=== PATIENT | male | born 1945 | race Two or more races ===

== ENCOUNTER 2017-01-19 10:42 | Outpatient (CLI) | payer MEDICARE ==
[~2017-01-19] VITALS: Ht 172.7 cm; Wt 70.9 kg
--- NOTE | ~2017-01-19 | HEMODYNAMI ---
PATIENT:ALICE DAMON MEDICAL RECORD: [id number] : 41 LOCATION:[facility] ADMISSION DATE: 01/19/17 Generatedon:01/19/201715:21 Patient name: ALICE FOOTE Patient #: [id number] SN: : 1945 Date of study: 01/19/2017 Page: Of Hemodynamic Procedure Report Patient Data Patient Demographics Procedure consent was obtained First Name: ALICE Gender: Male Last Name: YANCY FOOTE : 1945 Middle Initial: A Age: 71 year(s) Patient #: [id number] Race: Other Additional ID: [id number] Contact details Address: [place] [address] State: [place] City: [place] Zip code: [address] Past Medical History Performed procedures and imaging results Date Procedure Procedure Results Comments 12/30/2016 Stress testing Positive->Intermediate Inferior with SPECT MPI risk Allergies: No known allergies Admission Admission Data Admission Date: 01/19/2017 Admission Time: 10:42 Height (in.): 61 BSA: 1.7 (m2) Height (cm.): 154.94 BMI: 29.48 (kg/m2) Weight (lbs.): 156 Weight (kg.): 70.76 Lab Results Lab Result Date: 01/19/2017 Lab Result Time: 12:00 Biochemistry Name Units Result Min Max BUN mg/dl 15 --(--*-)-- 7 18 Creatinine mg/dl 1.1 --(--*-)-- 0.6 1.3 CBC Name Units Result Min Max Hematocrit % 43.2 --(*---)-- 42 54 Hemoglobin g/dl 14.5 --(*---)-- 13.5 17.5 Procedure Procedure Types Cath Procedure Diagnostic Procedure LHC LHC w/Coronaries Miscellaneous Procedures Moderate Sedation up to 15 minutes Procedure Description Procedure Date Procedure Date: 01/19/2017 Procedure Start Time: 15:00 Procedure End Time: 15:20 Procedure Staff Name Function Lang Vega MD Performing Physician Xiomara Leslie RN Nurse Silvestre Colvin RT Monitor Lima Mott RT Scrub Meaghan Stafford RT Monitor Procedure Data Cath Procedure Fluoroscopy Diagnostic fluoroscopy Total fluoroscopy Time: 4.9 time: 4.9 min min Diagnostic fluoroscopy Total fluoroscopy dose: 661 dose: 661 mGy mGy Contrast Material Contrast Material Type Amount (ml) Isovue 300 90 Entry Location Entry Primary Successful Side Size Upsize Upsize Entry Closure Menendez ccessful Closure Location (Fr) 1 (Fr) 2 (Fr) Remarks Device Remarks Radial Right 6 Fr Mechanical Traclet artery Short Compression Estimated blood loss: 10 ml Diagnostic catheters Device Type Used For End Catheter Placement Terumo 5Fr Jordan 110cm Procedure catheter Terumo 5Fr [place] 110cm Procedure catheter Procedure Complications No complications Procedure Medications Medication Administration Route Dosage Oxygen NC 2 l/min Heparin Flush Bag added to field 2 bags (1000units/500ml NS) Lidocaine 2% added to field 20 Radial Cocktail added to field 1 syringe (Verapomil 2mg/Nitro 400mcg/Heparin 1500units) Versed I.V. 1 mg Fentanyl I.V. 50 mcg Radial Cocktail I.A. 1 syringe (Verapomil 2mg/Nitro 400mcg/Heparin 1500units) Versed I.V. 1 mg Fentanyl I.V. 50 mcg Fentanyl I.V. 50 mcg Fentanyl I.V. 50 mcg Hemodynamics Rest BSA: 1.7 (m2) HGB: 14.5 (g/dl) O2 Consumption: Estimated: 185.53 (ml/min) O2 Con sumption indexed: Estimated:109.14 (ml/min/m) Heart Rate: 54 (bpm) Pressure Samples Time Site Value (mmHg) Purpose Heart Use Rate(bpm) 15:04 LV 168/4,22 Snapshot 84 15:04 AO 130/81(97) Pullback 85 15:04 LV 172/4,25 Pullback 85 Gradients Valve Time Site 1 Site 2 Mean SEP/DFP Peak To Heart Use (mmHg) (sec/min) Peak Rate (mmHg) (bpm) Aortic 15:04 LV AO 18 21 42 85 172/4,25 130/81(97) Calculations Valve P-P Mean Valve Index Valve Source Name Gradient Area Flow (cm2) Aortic 42 18 42 18 Snapshots Pre Cath Intra NCS Post Cath Vital Signs Time Heart Resp SPO2 NIBP (mmHg) Rhythm Pain Sedation Rate (ipm) (%) Status Level (bpm) 14:49:26 59 18 98 155/81(113) NSR 0 (11) 10(A) , No pain 14:53:44 61 15 98 133/83(100) NSR 0 (11) 10(A) , No pain 14:57:56 67 16 98 140/76(118) NSR 0 (11) 10(A) , No pain 15:02:10 71 16 98 132/74(127) NSR 0 (11) 9(A) , No pain 15:06:20 86 16 99 116/80(101) NSR 0 (11) 9(A) , No pain 15:11:11 83 16 99 132/86(110) NSR 0 (11) 9(A) , No pain 15:15:21 76 16 98 136/76(118) NSR 0 (11) 9(A) , No pain 15:18:52 71 16 100 139/76(110) NSR 0 (11) 10(A) , No pain Medications Time Medication Route Dose Verified Delivered Reason Notes Effectiveness by by 14:48:23 Oxygen NC 2 l/min Lang Xiomara Per Gary Leslie RN physician 14:48:33 Heparin Flush added 2 bags Lang Lang used for Bag to Gary Vega MD procedure (1000units/500ml field NS) 14:48:40 Lidocaine 2% added 20ml Lang Lang used for to vial Gary Vega MD procedure field 14:48:48 Radial Cocktail added 1 Lang Lang used for (Verapomil to syringe Gary Vega MD procedure 2mg/Nitro field 400mcg/Heparin 1500units) 14:54:39 Versed I.V. 1 mg Lang Xiomara for sedation Gary Leslie RN 14:54:44 Fentanyl I.V. 50 mcg Lang Xiomara for sedation Gary Leslie RN 14:56:45 Fentanyl I.V. 50 mcg Lang Xiomara for sedation Gary Leslie RN 14:56:56 Versed I.V. 1 mg Lang Xiomara for sedation Gary Leslie RN 14:59:02 Fentanyl I.V. 50 mcg Lang Xiomara for sedation Gary Leslie RN 15:02:48 Radial Cocktail I.A. 1 Lang Lang for (Verapomil syringe Gary Vega MD vasodilation 2mg/Nitro 400mcg/Heparin 1500units) 15:10:57 Fentanyl I.V. 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 Start room use. 14:28:49 Time tracking: Regular hours 14:28:53 Plan of Care:Hemodynamics will remain stable., Cardiac rhythm will remain stable., Comfort level will be maintained., Respiratory function will remain adequate., Patient/ family verbilizes understanding of procedure., Procedure tolerated without complication., Recovers from procedure without complications.. 14:40:05 Patient received from Pre/Post Procedure Room to CCL 2 Alert and oriented. Tansferred to table in Supine position. 14:40:06 Warm blankets applied, and bill hugger turned on for patient comfort. 14:40:06 Correct patient and procedure confirmed by team. 14:40:07 Signed procedure consent form obtained from patient. 14:40:08 ECG and BP/O2 sat monitors applied to patient. 14:40:09 Full Disclosure recording started 14:47:18 Vital chart was started 14:47:20 Baseline sample Acquired. 14:47:23 Rhythm: sinus rhythm 14:47:49 H&P Date Dictated: 01/06/2017 Within 30 days and on chart., H&P Addendum completed by physician on day of procedure. (MUST COMPLETE FOR ALL OUTPATIENTS). 14:47:50 Pre-procedure instructions explained to patient. 14:47:50 Pre-op teaching completed and patient verbalized understanding. 14:47:58 Family in waiting room. 14:48:00 Patient NPO since Midnight. 14:48:05 Patient allergic to No known allergies 14:48:11 Is patient on blood thinner?No 14:48:13 Patient diabetic? No. 14:48:15 Previous problem with sedation/anesthesia? No ? 14:48:17 Snore? Yes 14:48:17 Sleep apnea? No 14:48:18 Deviated septum? No 14:48:19 Opens mouth fully? Yes 14:48:20 Sticks out tongue? Yes 14:48:22 Airway obstruction? No ? 14:48:23 Oxygen 2 l/min NC was administered by Xiomara Leslie RN; Per physician; 14:48:23 Dentures? No ? 14:48:26 Patient pain scale 0/10 ?. 14:48:33 Heparin Flush Bag (1000units/500ml NS) 2 bags added to field was administered by Lang Vega MD; used for procedure; 14:48:33 IV patent on arrival in left forearm with 0.9% NaCl at [facility]. 14:48:40 Lidocaine 2% 20ml vial added to field was administered by Lang Vega MD; used for procedure; 14:48:48 Radial Cocktail (Verapomil 2mg/Nitro 400mcg/Heparin 1500units) 1 syringe added to field was administered by Lang Vega MD; used for procedure; 14:49:42 Lab Result : BUN 15 mg/dl 14:49:42 Lab Result : Creatinine 1.1 mg/dl 14:49:42 Lab Result : Hemoglobin 14.5 g/dl 14:49:42 Lab Result : Hematocrit 43.2 % 14:49:46 Lab results completed and on chart. 14:49:49 Right Radial & Right Groin area was prepped with chlora-prep and draped in sterile fashion 14:49:49 Alarms reviewed by R. N. 14:49:50 Sharps counted by scrub and verified by R.N. 14:49:52 Use device set Radial Dx 14:49:53 MBrace Wrist Support opened to sterile field. 14:49:54 Tegaderm 4 x 4 opened to sterile field. 14:49:54 Acist Manifold opened to sterile field. 14:49:55 Acist Hand Control opened to sterile field. 14:49:56 Acist Syringe opened to sterile field. 14:49:56 Medline Cath Pack opened to sterile field. 14:49:57 Bag Decanter opened to sterile field. 14:49:57 Terumo 6Fr Slender Glidesheath opened to sterile field. 14:49:58 St Mukund 260cm J .035 wire opened to sterile field. 14:50:13 Patient Height : 154.94 cm 14:50:15 Patient Weight : 70.76 kg 14:53:35 Physician arrived 14:53:36 --------ALL STOP TIME OUT------ 14:53:36 Final Timeout: patient, procedure, and site verified with staff and physician. All members of the team are in agreement. 14:53:38 Right Radial & Right Groin site verified by team. 14:53:41 Physical assessment completed. ASA score P 2 - A patient with mild systemic disease as per Lang Vega MD. 14:53:44 Sedation plan: IV Moderate Sedation Versed, Fentanyl 14:54:39 Versed 1 mg I.V. was administered by Xiomara Leslie RN; for sedation; 14:54:44 Fentanyl 50 mcg I.V. was administered by Xiomara Leslie RN; for sedation; 14:56:23 Zero performed for pressure channel P1 14:56:45 Fentanyl 50 mcg I.V. was administered by Xiomara Leslie RN; for sedation; 14:56:56 Versed 1 mg I.V. was administered by Xiomara Leslie RN; for sedation; 14:59:02 Fentanyl 50 mcg I.V. was administered by Xiomara Leslie RN; for sedation; 15:00:45 Procedure started. 15:00:57 Local anesthetic to right radial artery with Lidocaine 2% by Lang Vega MD.INITIAL ACCESS ONLY 15:02:48 Radial Cocktail (Verapomil 2mg/Nitro 400mcg/Heparin 1500units) 1 syringe I.A. was administered by Lang Vega MD; for vasodilation; 15:02:50 A 6 Fr Short sheath was inserted into the Right Radial artery 15:03:10 A Terumo 5Fr Jordan 110cm catheter was advanced over the wire and used for Procedure. 15:04:17 LV gram done using THOMAS 15:04:20 Injector settings: Ml/sec: 5, Volume: 15, 15:04:31 EF : 60 % 15:05:41 RCA angiography performed. 15:06:34 Catheter removed. 15:09:07 Medtronic Launcher 5Fr AR 1.0 guide catheter opened to sterile field. 15:09:15 RCA angiography performed. 15:10:19 Catheter removed. 15:10:57 Fentanyl 50 mcg I.V. was administered by Xiomara Leslie RN; for sedation; 15:12:14 A Terumo 5Fr [place] 110cm catheter was advanced over the wire and used for Procedure. 15:12:21 LCA angiography performed. 15:16:02 Catheter removed. 15:17:41 Sheath removed intact; hemostasis achieved with Mechanical Compression to the Right Radial artery. 15:17:44 Procedure ended.(Physican Out) 15:18:19 Fluoroscopy time 04.90 minutes. 15:18:25 Fluoroscopy dose: 661 mGy 15:18:25 Flurop Dose total: 661 15:18:30 Contrast amount:Isovue 300 90ml. 15:18:32 Sharps counted by scrub and verified by R.N. 15:18:46 Post Procedure Pulses reassessed and unchanged 15:18:49 Post-procedure physical assessment completed. ASA score P 2 - A patient with mild systemic disease as per Lang Vega MD. 15:18:54 Post procedure rhythm: unchanged. 15:18:58 Estimated blood loss: 10 ml 15:19:00 Post procedure instruction explained to patient.Patient verbalizes understanding. 15:19:12 Procedure and supply charges have been captured, reviewed, submitted and are correct. 15:19:54 Procedure Complication : No complications 15:19:57 Vital chart was stopped 15:20:00 Report given to Pre/Post Procedure Room. 15:20:04 Patient transfered to Pre/Post Procedure Room with Stretcher. 15:20:07 Procedure ended. 15:20:07 Full Disclosure recording stopped 15:20:12 End room use (Document Last) 15:21:10 TR band inflated with 13cc of air. Device Usage Item Name Manufacture Quantity Catalog Hospital Part Current Minimal Lot# / Number Charge Number Stock Stock Serial# Code [facility] Advanced 1 140-0250-00 092752 16621 [id number] 5 Wrist Vascular Support Dynamics Tegaderm 4 3M 1 [id number] [id number] 326980 510627 5 x 4 Acist Acist 1 07184 440150 482486 204076 5 Manifold Medical Systems Inc Acist Hand Acist 1 88129 557533 178977 282472 5 Control Medical Systems Inc Acist Acist 1 78822 533117 245589 263182 20 Syringe Medical Systems Inc Medline Cardinal 1 [id number] 119744 38214 049893 5 Cath Pack Health Bag Microtek 1 2001S 2971740 51949 182610 5 Decanter Medical Inc. Terumo 6Fr Terumo 1 [id number] 697723 313857 640115 [address] Mukund 1 745544 306679 935407 650962 30 260cm J .035 wire Terumo 5Fr Terumo 1 98-9277 305275 167655 555035 5 Jordan 110cm catheter Medtronic Medtronic 1 [id number] 133589 875930 602472 1 Launcher 5Fr AR 1.0 guide catheter Terumo 5Fr Terumo 1 62-0987 635705 988008 070374 5 [place] 110cm catheter Signature Audit [place] Stage Time Signature Unsigned Intra-Procedure 01/19/2017 Meaghan Stafford 3:21:31 PM RT(R) Signatures Monitor : Silvestre Colvin RT Signature : Date : Time : Monitor : Meaghan Stafford Signature : RT Date : Time : [address] [place] [address]
[~2017-01-19 10:42] MED LIST: BAYER CHEWABLE81 MG PO; BRILINTA90 MG PO; SYNTHROID88 MCG PO
[2017-01-19 12:03] VITALS: BP 131/65; Ht 172.7 cm; Wt 70.9 kg
[2017-01-19] MEDS ORDERED: ZOCOR40 MG PO (12:19)
[2017-01-19] MEDS ORDERED: LIBRAX CAPSULE1 CAP PO (12:19)
[2017-01-19] MEDS ORDERED: SINGULAIR10 MG PO (12:19)
[2017-01-19] MEDS ORDERED: SYNTHROID50 MCG PO (12:20)
[2017-01-19] MEDS ORDERED: XANAX0.25 MG PO (12:21)
[2017-01-19] MEDS ORDERED: HALCION0.25 MG PO (12:21)
[2017-01-19 12:22] LABS: HEMATOCRIT 43.2 % (42.0-54.0); HEMOGLOBIN 14.5 g/dL (13.5-17.5); IMMATURE GRANULOCYTES 0.2 % (0-5); LYMPHOCYTES 27.4 % (15-50); MCHC 33.6 g/dL (31.0-37.0); MCV 92.5 fL (80.0-100.0); MEAN PLATELET VOLUME 8.9 fL (7.4-10.4); MONOCYTES 11.7 % (2-11); NEUTROPHILS 53.7 % (40-80); PLATELET COUNT 216 10x3/uL (130-400); RBC 4.67 10x6/uL (4.20-6.10); RDW 13.3 % (11.5-14.5); WBC 5.2 10x3/uL (4.8-10.8)
[2017-01-19] MEDS ORDERED: PRINIVIL20 MG PO (12:22)
[2017-01-19] MEDS ORDERED: LEXAPRO10 MG PO (12:22)
[2017-01-19 12:46] LABS: ANION GAP 11.7 mmol/L (8-16); CALCIUM 9.4 mg/dL (8.5-10.1); CARBON DIOXIDE 26.5 mmol/L (21.0-32.0); CREATININE - SERUM 1.1 mg/dL (0.6-1.3); POTASSIUM - SERUM 4.2 mmol/L (3.5-5.1)
[2017-01-19] MEDS ORDERED: ISOSORBIDE MONO30 M1 PO (15:39)
--- NOTE | 2017-01-19 15:45 | NUR ---
RESTING IN BED WITH EYES CLOSED. 2L NC, NO RESP DISTRESS NOTED. VSS. RIGHT WRIST TRACELET IN PLACE, NO BLEEDING NOTED. NO C/O CHEST PAIN OR NAUSEA. INSTRUCTED PT NOT TO BEND OR FLEX WRIST.
--- NOTE | 2017-01-19 16:15 | NUR ---
WATER AND SANDWICH GIVEN. NO C/O NAUSEA OR CHEST PAIN. RIGHT WRIST TRACELET IN PLACE, NO BLEEDING NOTED. VSS. WILL CONTINUE TO MONITOR.
--- NOTE | 2017-01-19 16:30 | NUR ---
IN BED WITH EYES CLOSED. 2L NC, NO RESP DISTRESS NOTED. RIGHT WRIST TRACELET IN PLACE, NO BLEEDING NOTED. VSS.
--- NOTE | 2017-01-19 17:15 | NUR ---
2CC OF AIR REMOVED FROM TRACELET. NO BLEEDING NOTED.
--- NOTE | 2017-01-19 17:30 | NUR ---
3CC OF AIR REMOVED FROM TRACELET. NO BLEEDING NOTED.
--- NOTE | 2017-01-19 17:55 | NUR ---
2CC OR AIR REMOVED FROM TRACELET. NO BLEEDING NOTED. LEFT WRIST PIV D/C'D WITH CATHTETER INTACT, BAND AID TO SITE. UP TO BEDSIDE TO GET DRESSED.
--- NOTE | 2017-01-19 18:02 | NUR ---
UP TO RESTROOM TO VOID.
--- NOTE | 2017-01-19 18:05 | NUR ---
REMAINING AIR REMOVED FROM TR BAND, DRESSING TO SITE. DISCHARGE INSTRUCTIONS GIVEN, VERBALIZED UNDERSTANDING.
--- NOTE | 2017-01-19 18:12 | NUR ---
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 LEFT FACILITY WITH FAMILY MEMBER AND ALL PERSONAL BELONGINGS.
--- NOTE | 2017-01-21 12:49 | OP ---
PATIENT NAME: ALICE DAMON MEDICAL RECORD: [id number] :41 LOCATION:D.CAT ADMISSION DATE: SURGEON: GALINA XAVIER M.D. DATE OF OPERATION: 01/19/2017 PROCEDURES PERFORMED: 1. Selective coronary angiography. 2. Left heart catheterization with ventriculogram. INDICATION: A 71-year-old gentleman who presents with recurrent angina. Recent stress testing revealed inferior wall ischemia. EQUIPMENT USED: A 5-Salvadorean Jordan catheter, AR modified catheter. TECHNIQUE: A 6-Salvadorean sheath was inserted in retrograde fashion in the right radial artery. Next, selective coronary angiography was performed in standard views using 5-Salvadorean Jordan catheter. The right coronary artery was cannulated with an AR modified catheter. Left heart catheterization was performed using the Jordan catheter as well. CORONARY ANATOMY: 1. Left main: Left main trunk is moderate in caliber. It gives rise to the LAD and circumflex. There is no obstruction. 2. LAD: This is a moderate-caliber vessel extending to the apex. The proximal and mid vessel has been stented. There is mild restenosis seen, but nothing worse than 30%. 3. Circumflex: This vessel is large in caliber. At the bifurcation point, there appears to be a smooth 40% stenosis. 4. Right coronary: This vessel is quite large and dominant. It appears to be smooth-walled and angiographically normal. 5. Left ventricle: Left ventricle is normal in size and function. No wall motion abnormalities are noted. Estimated ejection is 60%. IMPRESSION: 1. Mild coronary artery disease by today's angiogram. 2. Normal left ventricular function. RECOMMENDATIONS: I will place him on nitrates. If his pain is not improved, I will consider intravascular ultrasound of the circumflex and LAD. TRANSINT:[id number] Voice Confirmation ID: [id number] DOCUMENT ID: [id number] GALINA XAVIER M.D. at 1249 CC: [id number] DICTATION DATE: 01/19/17 1524 INTERNET ARCHITECT: 01/20/17 0041 DEP CLI 01/19/17 [address] [facility] [place] [address]
== END 2017-01-19 18:12 | disposition home or self-care (01) ==
LOC: D.CATH 10:42
PROVIDERS: Internal Medicine Cardiovascular Disease
DX: I25.119 Atherosclerotic heart disease of native coronary artery with unspecified angina pectoris (principal)

== ENCOUNTER 2017-01-27 10:39 | Outpatient (CLI) | payer MEDICARE ==
[~2017-01-27] VITALS: Ht 172.7 cm; Wt 75.5 kg
--- NOTE | ~2017-01-27 | HEMODYNAMI ---
PATIENT:ALICE DAMON MEDICAL RECORD: [id number] : 41 LOCATION:[facility] ADMISSION DATE: 01/27/17 Generatedon:01/27/201715:54 Patient name: ALICE FOOTE Patient #: [id number] S SN: [id number] : 1945 Date of study: 01/27/2017 Page: Of Hemodynamic Procedure Report Patient Data Patient Demographics Procedure consent was obtained First Name: ALICE Gender: Male Last Name: YANCY FOOTE : 1945 Middle Initial: A Age: 71 year(s) Patient #: [id number] Race: Other SSN: [id number] Additional ID: [id number] Contact details Address: [address] [address] State: [place] City: [place] Zip code: [address] Past Medical History Allergies: No known allergies Admission Admission Data Admission Date: 01/27/2017 Admission Time: 10:39 Procedure Procedure Types Cath Procedure PCI Procedure Coronary Stent Initial Miscellaneous Procedures Moderate Sedation up to 30 minutes Procedure Description Procedure Date Procedure Date: 01/27/2017 Procedure Start Time: 15:22 Procedure End Time: 15:54 Procedure Staff Name Function Lang Bautista MD Performing Physician Luisito Valerio RT Scrub Otis Hollis RT Monitor Xiomara Leslie RN Nurse Procedure Data Cath Procedure Fluoroscopy Diagnostic fluoroscopy Total fluoroscopy Time: 9.2 time: 9.2 min min Diagnostic fluoroscopy Total fluoroscopy dose: dose: 1047 mGy 1047 mGy Contrast Material Contrast Material Type Amount (ml) Isovue 300 105 Entry Location Entry Primary Successful Side Size Upsize Upsize Entry Closure Succes sful Closure Location (Fr) 1 (Fr) 2 (Fr) Remarks Device Remarks Femoral Right 6 Fr Exoseal artery Short Estimated blood loss: 10 ml Procedure Complications No complications Procedure Medications Medication Administration Route Dosage Oxygen NC 2 l/min Heparin Flush Bag added to field 2 bags (1000units/500ml NS) Lidocaine 2% added to field 20 Versed I.V. 1 mg Fentanyl I.V. 50 mcg Versed I.V. 1 mg Fentanyl I.V. 50 mcg Fentanyl I.V. 50 mcg Versed I.V. 1 mg Heparin Bolus I.V. 7500 units Nitroglycerin IC/IA I.C. 100 mcg Versed I.V. 1 mg Fentanyl I.V. 50 mcg Plavix P.O. 75 mg Hemodynamics Rest Heart Rate: 54 (bpm) Pressure Samples Time Site Value (mmHg) Purpose Heart Use Rate(bpm) 15:29 AO 126/65(88) Snapshot 63 Snapshots Pre Cath Intra NCS Post Cath Vital Signs Time Heart Resp SPO2 NIBP (mmHg) Rhythm Pain Sedation Rate (ipm) (%) Status Level (bpm) 15:09:39 55 16 100 151/76(93) NSR 0 (11) 10(A) , No pain 15:13:57 57 13 100 136/74(113) NSR 0 (11) 10(A) , No pain 15:18:08 57 16 99 135/74(105) NSR 0 (11) 10(A) , No pain 15:22:18 59 15 98 129/79(97) NSR 0 (11) 9(A) , No pain 15:26:26 74 16 98 107/75(88) NSR 0 (11) 9(A) , No pain 15:30:28 69 18 98 109/69(90) NSR 0 (11) 9(A) , No pain 15:34:32 80 17 96 122/67(79) NSR 0 (11) 9(A) , No pain 15:39:20 71 16 96 131/82(91) NSR 0 (11) 9(A) , No pain 15:43:28 73 15 97 112/77(100) NSR 0 (11) 9(A) , No pain 15:47:30 76 15 97 132/79(110) NSR 0 (11) 10(A) , No pain 15:51:03 72 19 98 140/84(104) NSR 0 (11) 10(A) , No pain Medications Time Medication Route Dose Verified Delivered Reason Notes Effectiveness by by 15:12:07 Oxygen NC 2 Lang Ortega Per physician l/min Gary Hannah RN 15:12:14 Heparin Flush added 2 Lang Lang used for Bag to bags Gary Bautista MD procedure (1000units/500ml field NS) 15:12:21 Lidocaine 2% added 20ml Lang Lang used for to vial Gary Bautista MD procedure field 15:12:29 Versed I.V. 1 mg Lang Buffie for sedation aGry Hannah RN 15:12:36 Fentanyl I.V. 50 Lang Buffie for sedation mcg Gary Hannah RN 15:14:43 Versed I.V. 1 mg Lang Xiomara for sedation Gary Leslie RN 15:14:55 Fentanyl I.V. 50 Lang Xiomara for sedation mcg Gary Leslie RN 15:17:00 Fentanyl I.V. 50 Lang Xiomara for sedation mcg Gary Leslie RN 15:19:03 Versed I.V. 1 mg Lang Xiomara for sedation Gary Leslie RN 15:25:44 Heparin Bolus I.V. 7500 Lang Xiomara for dsoe units Gary Leslie RN anticoagulation verified with dr bautista 15:34:04 Nitroglycerin I.C. 100 Lang Lang for IC/IA mcg Gary Bautista MD vasodilation 15:42:28 Versed I.V. 1 mg Lang Xiomara for sedation Gary Leslie RN 15:42:33 Fentanyl I.V. 50 Lang Xiomara for sedation mcg Gary Leslie RN 15:50:04 Plavix P.O. 75 mg Lang Xiomara for Gary Leslie RN antiplatelet therapy Procedure Log Time Note 14:45:31 Luisito Valerio RT(R) sent for patient. Start room use. 14:58:59 Informed consent obtained and on chart 14:59:06 Diagnostic Cath Status : Elective 14:59:32 Time tracking: Regular hours 14:59:36 Plan of Care:Hemodynamics will remain stable., Cardiac rhythm will remain stable., Comfort level will be maintained., Respiratory function will remain adequate., Patient/ family verbilizes understanding of procedure., Procedure tolerated without complication., Recovers from procedure without complications.. 15:05:43 Patient received from Pre/Post Procedure Room to [facility] 2 Alert and oriented. Tansferred to table in Supine position. 15:05:44 Warm blankets applied, and bill hugger turned on for patient comfort. 15:05:45 Correct patient and procedure confirmed by team. 15:05:46 ECG and BP/O2 sat monitors applied to patient. 15:08:23 Vital chart was started 15:08:24 Baseline sample Acquired. 15:08:28 Rhythm: sinus rhythm 15:08:30 Full Disclosure recording started 15:08:33 H&P Date Dictated: 01/27/2017 Within 30 days and on chart., H&P Addendum completed by physician on day of procedure. (MUST COMPLETE FOR ALL OUTPATIENTS). 15:08:36 Pre-procedure instructions explained to patient. 15:08:36 Pre-op teaching completed and patient verbalized understanding. 15:08:37 Family in waiting room. 15:08:39 Patient NPO since Midnight. 15:08:44 Is the patient allergic to Iodine/contrast media? No. 15:08:45 Was the patient premedicated? No 15:08:48 Is patient on blood thinner?Yes 15:08:50 ACC The patient was administered the following blood thiners within the last 24 hours: ACCPlavix 15:09:15 Patient diabetic? No. 15:09:19 Previous problem with sedation/anesthesia? No ? 15:09:20 Snore? Yes 15:09:21 Sleep apnea? No 15:09:22 Deviated septum? No 15:09:24 Opens mouth fully? Yes 15:09:34 Sticks out tongue? Yes 15:09:46 Airway obstruction? Yes chf 15:09:49 Dentures? No ? 15:09:52 Pre procedure: right dorsailis pedis pulse 1+ Palpable, but thready & weak; easily obliterated 15:09:59 Patient pain scale 0/10 ?. 15:10:06 IV patent on arrival in left forearm with 0.9% NaCl at O. 15:10:40 Lab results completed and on chart. 15:10:50 Right groin area was prepped with chlora-prep and draped in sterile fashion 15:10:51 Alarms reviewed by R. N. 15:10:51 Sharps counted by scrub and verified by R.N. 15:10:54 Physician arrived 15:10:54 --------ALL STOP TIME OUT------ 15:10:55 Final Timeout: patient, procedure, and site verified with staff and physician. All members of the team are in agreement. 15:11:00 Right groin site verified by team. 15:11:03 Physical assessment completed. ASA score P 2 - A patient with mild systemic disease as per Lang Bautista MD. 15:11:06 Sedation plan: IV Moderate Sedation Versed, Fentanyl 15:11:10 Use device set Femoral PCI 15:11:11 Acist Syringe opened to sterile field. 15:11:12 Acist Hand Control opened to sterile field. 15:11:12 Bag Decanter opened to sterile field. 15:11:12 Medline Cath Pack opened to sterile field. 15:11:12 Terumo 6Fr [place] Sheath opened to sterile field. 15:11:13 St Mukund 260cm J .035 wire opened to sterile field. 15:11:13 Merit BasixCompak Inflation Kit opened to sterile field. 15:11:14 Acist Manifold opened to sterile field. 15:11:14 Tegaderm 4 x 4 opened to sterile field. 15:12:07 Oxygen 2 l/min NC was administered by Shannon Hannah RN; Per physician; 15:12:14 Heparin Flush Bag (1000units/500ml NS) 2 bags added to field was administered by Lang Bautista MD; used for procedure; 15:12:21 Lidocaine 2% 20ml vial added to field was administered by Lang Bautista MD; used for procedure; 15:12:29 Versed 1 mg I.V. was administered by Shannon Hannah RN; for sedation; 15:12:36 Fentanyl 50 mcg I.V. was administered by Shannon Hannah RN; for sedation; 15:13:34 Jackson BMW [place] 2 J-tip 300cm 0.014 guide wir opened to sterile field. 15:13:35 High Pressure Extension Tubing (Gary) opened to sterile field. 15:14:43 Versed 1 mg I.V. was administered by Xiomara Leslie RN; for sedation; 15:14:55 Fentanyl 50 mcg I.V. was administered by Xiomara Leslie RN; for sedation; 15:15:49 Baseline sample Acquired. 15:17:00 Fentanyl 50 mcg I.V. was administered by Xiomara Leslie RN; for sedation; 15:19:03 Versed 1 mg I.V. was administered by Xiomara Leslie RN; for sedation; 15:22:02 Zero performed for pressure channel P1 15:22:07 Procedure started. 15:22:12 Local anesthetic to right femoral artery with Lidocaine 2% by Lang Bautista MD.INITIAL ACCESS ONLY 15:23:23 A 6 Fr Short sheath was inserted into the Right Femoral artery 15:23:56 Cordis 6FR XBLAD 3.5 guide catheter opened to sterile field. 15:24:06 6 Fr XBLAD 3.5 guide catheter was inserted over the wire 15:25:44 Heparin Bolus 7500 units I.V. was administered by Xiomara Leslie RN; for anticoagulation; dsoe verified with dr bautista 15:28:24 BMW wire advanced. 15:29:06 Wire advanced across lesion. 15:31:21 Inflation Number: 1 A Powerit Solutionstronic Integrity 3.0 X 18 stent was prepped and advanced across the Mid CX. The stent was deployed at 12 XANDER for 0:10 (min:sec). 15:34:04 Nitroglycerin IC/IA 100 mcg I.C. was administered by Lang Bautista MD; for vasodilation; 15:41:53 Wire exchanged for Luge wire. 15:42:03 Acumen Luge Straight 300cm 0.014 guide wire opened to sterile field. 15:42:28 Versed 1 mg I.V. was administered by Xiomara Leslie RN; for sedation; 15:42:33 Fentanyl 50 mcg I.V. was administered by Xiomara Leslie RN; for sedation; 15:47:06 Unable to wire LAD. 15:47:11 Stent catheter was removed intact over wire. 15:47:32 Wire removed. 15:47:33 Guide catheter removed. 15:48:14 Cordis 6Fr Exoseal opened to sterile field. 15:48:30 Sheath removed intact; hemostasis achieved with Exoseal to the Right Femoral artery. 15:48:33 Procedure ended.(Physican Out) 15:48:57 Fluoroscopy time 09.20 minutes. 15:49:02 Fluoroscopy dose: 1047 mGy 15:49:02 Flurop Dose total: 1047 15:50:04 Plavix 75 mg P.O. was administered by Xiomara Leslie RN; for antiplatelet therapy; 15:51:01 Contrast amount:Isovue 300 105ml. 15:51:03 Sharps counted by scrub and verified by R.N. 15:51:04 Insertion/operative site no bleeding no hematoma. 15:51:07 Post-op/insertion site Right Femoral artery dressed using a 4 x 4 and Tegaderm. 15:51:09 Post Procedure Pulses reassessed and unchanged 15:51:11 Post-procedure physical assessment completed. ASA score P 2 - A patient with mild systemic disease as per Lang Bautista MD. 15:51:14 Post procedure rhythm: unchanged. 15:51:16 Estimated blood loss: 10 ml 15:51:17 Post procedure instruction explained to patient.Patient verbalizes understanding. 15:51:17 Patient needs reinforcement of post procedure teaching. 15:51:33 Procedure type changed to Cath procedure, PCI procedure, Coronary Stent Initial, Miscellaneous Procedures, Moderate Sedation up to 30 minutes 15:51:37 Procedure Complication : No complications 15:52:28 Procedure and supply charges have been captured, reviewed, submitted and are correct. 15:54:16 Vital chart was stopped 15:54:17 See physician's report for complete and final results. 15:54:19 Report given to Pre/Post Procedure Room. 15:54:22 Patient transfered to Pre/Post Procedure Room with Stretcher. 15:54:24 Procedure ended. 15:54:24 Full Disclosure recording stopped 15:54:29 End room use (Document Last) Intervention Summary Intervention Notes Time ActionType Lesion and Equipment Action# Pressure Duration Attributes Used 15:31:21 Place stent Mid CX Medtronic 1 12 00:10 Integrity 3.0 X 18 stent Device Usage Item Name Manufacture Quantity Catalog Hospital Part Current Minima l Lot# / Number Charge Number Stock Stock Serial# Code Acist Acist 1 02250 566674 526698 103381 20 Syringe Medical Systems Inc Acist Hand Acist 1 66723 583266 638435 193736 5 Control Medical Systems Inc Bag Microtek 1 2001S 505328 86882 974818 5 DecSalonmeister Medical Inc. Medline Cardinal 1 [id number] 105767 95221 134806 5 Selerity Terumo 6Fr Terumo 1 [id number] 978617 154222 436689 [address] Mukund 1 918245 092724 443313 969222 30 260cm J .035 wire Merit Merit 1 [id number] 787816 347954 359287 15 TabSysixEdsix Brain Lab Private Limited Medical Inflation Kit Acist Acist 1 14363 063950 289725 203285 5 Docitt Systems Inc Tegaderm 4 3M 1 1626W 461859 076100 409301 5 x 4 Jackson BMW Jackson 1 [id number] 902366 085134 552524 5 [place] 2 Vascular J-tip 300cm 0.014 guide wir High Merit 1 [id number] 182895 79518 990398 10 Pressure Medical Extension Tubing (Bautista) Cordis 6FR Cardinal 1 [id number] 690022 591855 406919 10 XBLAD 3.5 Health guide catheter Medtronic Medtronic 1 [id number] 577679 800301 460150 7 [id number] Integrity 3.0 X 18 stent Yolyn Sci Yolyn 1 [id number] 462502 837535 102971 5 ImpactRx Scientific Straight 300cm 0.014 guide wire Cordis 6Fr Cardinal 1 EX600 817278 687170 074805 10 Woven [employer] Signature Audit Purlear Stage Time Signature Unsigned Intra-Procedure 01/27/2017 Otis Hollis 3:54:41 PM RT(R) Signatures Monitor : Otis Hollis RT Signature : Date : Time : [id number] [place] [address]
[~2017-01-27 10:39] MED LIST changes: +HALCION0.25 MG PO; +ISOSORBIDE MONO30 M1 PO; +LEXAPRO10 MG PO; +LIBRAX CAPSULE1 CAP PO; +PRINIVIL20 MG PO; +SINGULAIR10 MG PO; +SYNTHROID50 MCG PO; +XANAX0.25 MG PO; +ZOCOR40 MG PO
[2017-01-27] MEDS ORDERED: NEXIUM40 MG PO (10:53)
[2017-01-27] MEDS ORDERED: LEVOTHYROXINE50 MCG PO (10:53)
[2017-01-27] MEDS ORDERED: PLAVIX75 MG PO (10:56)
[2017-01-27] MEDS ORDERED: BAYER CHEWABLE81 MG PO (10:56)
[2017-01-27] MEDS ORDERED: RANEXA500 MG PO (10:56)
[2017-01-27 11:01] VITALS: BP 128/62; Ht 172.7 cm; Wt 75.5 kg
[2017-01-27 11:20] LABS: BASOPHILS 0.7 % (0-2); EOSINOPHILS 5.3 % (0-7); HEMATOCRIT 42.4 % (42.0-54.0); HEMOGLOBIN 14.2 g/dL (13.5-17.5); IMMATURE GRANULOCYTES 0.2 % (0-5); LYMPHOCYTES 33.8 % (15-50); MCH 31.1 pg (26.0-34.0); MCHC 33.5 g/dL (31.0-37.0); MCV 92.8 fL (80.0-100.0); MEAN PLATELET VOLUME 8.8 fL (7.4-10.4); MONOCYTES 12.2 % (2-11); NEUTROPHILS 47.8 % (40-80); PLATELET COUNT 224 10x3/uL (130-400); RBC 4.57 10x6/uL (4.20-6.10); RDW 13.3 % (11.5-14.5); WBC 4.5 10x3/uL (4.8-10.8)
[2017-01-27 11:34] LABS: ANION GAP 9.5 mmol/L (8-16); CALCIUM 9.2 mg/dL (8.5-10.1); CREATININE - SERUM 1.3 mg/dL (0.6-1.3); POTASSIUM - SERUM 4.5 mmol/L (3.5-5.1)
--- NOTE | 2017-01-27 18:49 | NUR ---
1615-RIGHT GROIN STABLE, HEMATOMA SMALL- DRESSING CDI, DENIES PAIN 1645-RIGHT GROIN CDI, NO HEMATOMA AT THIS TIME, NO BLEEDING
--- NOTE | 2017-01-27 20:22 | NUR ---
2010-RIDE HERE, D'C HOME IN PRIVATE CAR, DENIES FURTHUR NEEDS
--- NOTE | 2017-01-29 10:59 | OP ---
PATIENT NAME: ALICE DAMON MEDICAL RECORD: [id number] :41 LOCATION:D.[facility] ADMISSION DATE: SURGEON: GALINA XAVIER M.D. DATE OF OPERATION: 01/27/2017 PROCEDURES PERFORMED: PTCA and stent placed to the circumflex. INDICATION: A 71-year-old gentleman presents with recurrent chest discomfort. Recent stress test revealing inferior wall ischemia. EQUIPMENT USED: A 6-[place] XB LAD guide, BMW guidewire, 3.0 x 18 mm Integrity stent. REFERRING PHYSICIAN: Dr. Brenton Kohler. DESCRIPTION OF INTERVENTION: A 6-[place] sheath was inserted in retrograde fashion in the right common femoral artery. Next, 100 units per kilogram of heparin was infused. A 6-[place] XB LAD guide was advanced and engaged in the left main coronary artery. Injections revealed a hazy 70% stenosis in the mid circumflex before the bifurcation point. There appeared to be a ring lesion in the middle of the stenosis. The BMW guide wire was placed in the distal vessel. A 3.0 x 18 mm Integrity stent was placed across the stenosis and deployed at 12 atmospheres. Injection reveals stent to be widely patent with 0% residual stenosis. There is marked improvement in distal flow. At this point, the wire and guide were removed. IMPRESSION: Successful percutaneous transluminal coronary angioplasty and stent to the circumflex with 0% residual stenosis. TRANSINT:[id number] Voice Confirmation ID: [id number] DOCUMENT ID: [id number] GALINA XAVIER M.D. at 1059 CC: [id number] DICTATION DATE: 01/27/17 1600 TAG METER OPERATOR: 01/27/17 1649 DEP CLI 01/27/17 [facility] [address] [id number]
== END 2017-01-27 20:15 | disposition home or self-care (01) ==
LOC: D.CATH 10:39
PROVIDERS: Internal Medicine Cardiovascular Disease
DX: I25.119 Atherosclerotic heart disease of native coronary artery with unspecified angina pectoris (principal)

== ENCOUNTER → 2017-05-29 12:52 | Outpatient (CLI) | payer MEDICARE ==
[2017-01-27 11:01] VITALS: BMI 25.2
[~2017-05-29 12:52] MED LIST changes: +LEVOTHYROXINE50 MCG PO; +NEXIUM40 MG PO; +PLAVIX75 MG PO; +RANEXA500 MG PO
== END | disposition home or self-care (01) ==
LOC: D.RT 12:52
DX: R91.8 Other nonspecific abnormal finding of lung field (principal)

== ENCOUNTER → 2018-05-06 08:00 | Outpatient (CLI) | payer MEDICARE ==
[2017-01-27 11:01] VITALS: BMI 25.2
[2018-05-06 08:45] LABS: ALBUMIN 3.2 g/dL (3.4-5.0); BILIRUBIN - DIRECT 0.13 mg/dL (0.00-0.30); BILIRUBIN - INDIRECT 0.25 mg/dL (0.00-1.00); BILIRUBIN - TOTAL 0.38 mg/dL (0.2-1.3)
== END | disposition home or self-care (01) ==
LOC: D.LAB 08:00 → D.US 09:00 → D.NM 09:30
PROVIDERS: Internal Medicine Gastroenterology
DX: R10.9 Unspecified abdominal pain (principal); R11.0 Nausea

== ENCOUNTER → 2019-02-22 08:11 | Outpatient (CLI) | payer MEDICARE ==
[2017-01-27 11:01] VITALS: BMI 25.2
== END | disposition home or self-care (01) ==
LOC: D.RT 02-16 08:00 → D.CT 02-16 09:00 → D.RT 08:11
PROVIDERS: ATTEND Internal Medicine Pulmonary Disease
DX: J44.9 Chronic obstructive pulmonary disease, unspecified (principal); R91.8 Other nonspecific abnormal finding of lung field

== ENCOUNTER → 2019-03-14 08:16 | Outpatient (CLI) | payer MEDICARE ==
[2017-01-27 11:01] VITALS: BMI 25.2
== END | disposition home or self-care (01) ==
LOC: D.HCCARDIO 08:16
PROVIDERS: ATTEND Internal Medicine Cardiovascular Disease
DX: I25.10 Atherosclerotic heart disease of native coronary artery without angina pectoris (principal)

== ENCOUNTER 2019-04-06 11:08 | Outpatient (CLI) | payer MEDICARE ==
[~2019-04-06] VITALS: Ht 165.1 cm; Wt 70.9 kg
--- NOTE | ~2019-04-06 | HEMODYNAMI ---
PATIENT:ALICE DAMON MEDICAL RECORD: [id number] : 41 LOCATION:[facility] ADMISSION DATE: 04/06/19 Generatedon:04/06/201914:05 Patient name: ALICE FOOTE Patient #: [id number] S SN: [id number] : 1945 Date of study: 04/06/2019 Page: Of Hemodynamic Procedure Report Patient Data Patient Demographics Procedure consent was obtained First Name: ALICE Gender: Male Last Name: YANCY FOOTE : 1945 Middle Initial: A Age: 73 year(s) Patient #: [id number] Race: Other SSN: [id number] Additional ID: [id number] Contact details Address: [address] [place] [address] State: [place] City: [facility] Zip code: [address] Past Medical History Allergies: No known allergies Admission Admission Data Admission Date: 04/06/2019 Admission Time: 11:08 Weight (lbs.): 156.53 Weight (kg.): 71 Lab Results Lab Result Date: 04/06/2019 Lab Result Time: 0:00 Biochemistry Name Units Result Min Max BUN mg/dl 14 --(--*-)-- 7 18 Creatinine mg/dl 1.1 --(--*-)-- 0.6 1.3 eGFR ml/min 69 *-(----)-- 90 120 NONAFRICAN CBC Name Units Result Min Max Hematocrit % 38.9 *-(----)-- 42 54 Hemoglobin g/dl 13.3 -*(----)-- 13.5 17.5 Procedure Procedure Types Cath Procedure Diagnostic Procedure C [facility] w/Coronaries Sedation Charges Moderate Sedation up to 15 minutes PCI Procedure Coronary Stent Coronary Stent Initial Procedure Description Procedure Date Procedure Date: 04/06/2019 Procedure Start Time: 13:30 Procedure End Time: 14:02 Procedure Staff Name Function Lang Vega MD Performing Physician Melissa Resendez RT Monitor Otis Hollis RT Scrub Maya Corrales RT Scrub Mary Harrison RN Nurse Procedure Data Cath Procedure Fluoroscopy Diagnostic fluoroscopy Total fluoroscopy Time: 7.2 time: 7.2 min min Diagnostic fluoroscopy Total fluoroscopy dose: 819 dose: 819 mGy mGy Contrast Material Contrast Material Type Amount (ml) Isovue 300 137 Entry Location Entry Primary Successful Side Size Upsize Upsize Entry Closure Menendez ccessful Closure Location (Fr) 1 (Fr) 2 (Fr) Remarks Device Remarks Radial Right 6 Fr Mechanical artery Short Compression Estimated blood loss: 10 ml Diagnostic catheters Device Type Used For End Catheter Placement DIAGNOSTIC [place] 110cm 5 Procedure Fr catheter ([id number]) Procedure Complications No complications Procedure Medications Medication Administration Route Dosage 0.9% NaCl I.V. 100 ml/hr Oxygen etCO2 Nasal cannula 2 l/min Lidocaine 2% added to field 20 Heparin Flush Bag added to field 2 bags (1000units/500ml NS) Radial Cocktail added to field 1 syringe (Verapamil 2mg/Nitro 400mcg/Heparin 1500units) Versed I.V. 2 mg Fentanyl I.V. 50 mcg Versed I.V. 2 mg Fentanyl I.V. 50 mcg Heparin Bolus I.V. 7000 units Plavix P.O. 600 mg Nitroglycerin IC/IA I.C. 100 mcg Hemodynamics Rest HGB: 13.3 (g/dl) Heart Rate: 60 (bpm) Pressure Samples Time Site Value (mmHg) Purpose Heart Use Rate(bpm) 13:33 LV 108/-5,3 Snapshot 71 Gradients Valve Time Site Site Mean SEP/DFP Peak To Heart Use 1 2 (mmHg) (sec/min) Peak Rate (mmHg) (bpm) Aortic 13:34 LV AO 88 Snapshots Pre Cath Intra NCS Post Cath Vital Signs Time Heart Resp SPO2 etCO2 NIBP (mmHg) Rhythm Pain Sedation Rate (ipm) (%) (mmHg) Status Level (bpm) 13:15:15 59 19 100 31.5 145/70(118) SB 0 (11) 10(A) , No pain 13:20:14 59 17 99 27.7 Measuring SB 0 (11) 10(A) , No pain 13:20:25 57 13 100 29.9 133/71(101) SB 0 (11) 10(A) , No pain 13:24:43 57 18 100 30.6 131/74(108) SB 0 (11) 10(A) , No pain 13:28:59 62 18 100 31.4 143/79(96) SB 0 (11) 10(A) , No pain 13:33:11 62 15 98 38 119/65(110) SB 0 (11) 10(A) , No pain 13:37:25 68 18 98 37.4 128/67(84) SB 0 (11) 9(A) , No pain 13:41:45 66 10 99 35.2 117/64(88) SB 0 (11) 9(A) , No pain 13:45:53 67 19 100 26.9 114/81(93) SB 0 (11) 9(A) , No pain 13:50:03 60 11 100 32.9 110/77(86) SB 0 (11) 10(A) , No pain 13:54:17 67 14 100 29.9 117/58(97) SB 0 (11) 10(A) , No pain 13:58:28 60 10 100 33.7 120/70(90) SB 0 (11) 10(A) , No pain 14:02:40 58 12 100 32.2 125/71(99) SB 0 (11) 10(A) , No pain Medications Time Medication Route Dose Verified Delivered Reason Not es Effectiveness by by 13:21:07 0.9% NaCl I.V. 100 Lang Mary used for ml/hr Gary Harrison building analyst/supervisor 13:21:13 Oxygen etCO2 2 l/min Lang Mary used for Nasal Gary Harrison procedure cannula RN 13:21:17 Lidocaine 2% added 20ml Lang Lang for local to vial Gary Vega MD anesthetic field 13:21:21 Heparin Flush added 2 bags Lang Lang used for Bag to Gary Vega MD procedure (1000units/500ml field NS) 13:21:25 Radial Cocktail added 1 Lang Lang used for (Verapamil to syringe Gary Vega MD procedure 2mg/Nitro field 400mcg/Heparin 1500units) 13:28:26 Versed I.V. 2 mg Lang Mary for sedation Gary Harrison RN 13:28:31 Fentanyl I.V. 50 mcg Lang Mary for sedation Gary Harrison RN 13:33:51 Versed I.V. 2 mg Lang Mary for sedation Gary Harrison RN 13:33:57 Fentanyl I.V. 50 mcg Lang Mary for sedation Gary Harrison RN 13:46:18 Heparin Bolus I.V. 7000 Lang Mary for rigo ified units Gary Harrison anticoagulation with Dr. GAEL Vega 13:47:08 Plavix P.O. 600 mg Lang Mary for Gary Harrison antiplatelet RN therapy 13:52:43 Nitroglycerin I.C. 100 mcg Lang Lang for IC/IA Gary Vega MD vasodilation Procedure Log Time Note 13:01:15 Signed procedure consent form obtained from patient. 13:01:17 Diagnostic Cath status Urgent 13:01:18 Time tracking: Regular hours (M-F 7:00 - 5:00) 13:01:23 Plan of Care:Hemodynamics will remain stable., Cardiac rhythm will remain stable., Comfort level will be maintained., Respiratory function will remain adequate., Patient/ family verbilizes understanding of procedure., Procedure tolerated without complication., Recovers from procedure without complications.. 13:01:47 Otis Hollis RT(R) sent for patient. Start room use. 13:07:06 Patient Weight : 156.53 lbs 13:08:06 Patient allergic to No known allergies 13:08:40 Lab Result : Creatinine 1.1 mg/dl 13:08:40 Lab Result : BUN 14 mg/dl 13:08:40 Lab Result : eGFR NONAFRICAN 69 ml/min 13:08:40 Lab Result : Hemoglobin 13.3 g/dl 13:08:40 Lab Result : Hematocrit 38.9 % 13:09:24 Patient received from Pre/Post Procedure Room to CCL 1 Alert and oriented. Tansferred to table in Supine position. 13:09:26 Warm blankets applied, and bill hugger turned on for patient comfort. 13:09:26 Correct patient and procedure confirmed by team. 13:09:27 ECG and BP/O2 sat monitors applied to patient. 13:14:07 Vital chart was started 13:16:35 Baseline sample Acquired. 13:16:38 Rhythm: sinus bradycardia 13:16:40 Full Disclosure recording started 13:16:49 H&P Date Dictated: 03/28/2019 Within 30 days and on chart., H&P Addendum completed by physician on day of procedure. (MUST COMPLETE FOR ALL OUTPATIENTS). 13:16:50 Pre-procedure instructions explained to patient. 13:16:50 Pre-op teaching completed and patient verbalized understanding. 13:16:52 Family in patients room. 13:16:53 Patient NPO since Midnight. 13:16:54 Is patient on blood thinner?No 13:16:56 Patient diabetic? No. 13:17:01 Previous problem with sedation/anesthesia? No ? 13:17:02 Snore? Yes 13:17:02 Sleep apnea? No 13:17:03 Deviated septum? No 13:17:04 Opens mouth fully? Yes 13:17:05 Sticks out tongue? Yes 13:17:08 Airway obstruction? No ? 13:17:11 Dentures? Yes PARTIAL IN 13:17:48 Modified Danny's test Ulnar < 7 seconds 13:17:52 Patient pain scale 0/10 ?. 13:17:57 IV patent on arrival in left hand with 0.9% NaCl at [facility]. 13:18:01 Lab results completed and on chart. 13:18:04 Right Radial & Right Groin area was prepped with chlora-prep and draped in sterile fashion 13:18:05 Alarms reviewed by R. N. 13:18:05 Sharps counted by scrub and verified by R.N. 13:18:09 Use device set Radial Dx or PCI 13:18:10 ACIST Syringe (01035) opened to sterile field. 13:18:11 Bag Decanter () opened to sterile field. 13:18:12 ACIST Hand Control (15136) opened to sterile field. 13:18:12 ACIST Manifold (09595) opened to sterile field. 13:18:13 Tegaderm 4 x 4 (1626W) opened to sterile field. 13:18:38 Medline Cath Pack ([id number]) opened to sterile field. 13:18:38 MBrace Wrist Support ([id number]) opened to sterile field. 13:18:39 NEEDLE Cook 21G 4cm Radial (X79551) opened to sterile field. 13:18:42 EMERALD Guide Wire (532-369) opened to sterile field. 13:18:43 SHEATH 6FR RAIN (2954248) opened to sterile field. 13:21:07 0.9% NaCl 100 ml/hr I.V. was administered by Mary Harrison RN; used for procedure; 13:21:13 Oxygen 2 l/min etCO2 Nasal cannula was administered by Mary Harrison RN; used for procedure; 13:21:17 Lidocaine 2% 20ml vial added to field was administered by Lang Vega MD; for local anesthetic; ::21 Heparin Flush Bag (1000units/500ml NS) 2 bags added to field was administered by Lang Vega MD; used for procedure; 13:21:25 Radial Cocktail (Verapamil 2mg/Nitro 400mcg/Heparin 1500units) 1 syringe added to field was administered by Lang Vega MD; used for procedure; 13:26:03 --------ALL STOP TIME OUT------ 13:26:03 Final Timeout: patient, procedure, and site verified with staff and physician. All members of the team are in agreement. 13:26:05 Right Radial & Right Groin site verified by team. 13:26:08 Fire Safety Assessment: A--An alcohol-based skin anteseptic being used preoperatively., C--Open oxygen or nitrous oxide is being used., D--An ESU, laser, or fiber-optic light is being used. 13:26:11 2) 60-89 Mildly reduced kidney function, and other findings (as for stage 1) point to kidney disease. 13:26:14 Physical assessment completed. ASA score P 2 - A patient with mild systemic disease as per Lang Vega MD. 13:26:17 Maximum allowable contrast does (3.7 X eGFR X 0.75)191 ml. 13:26:23 Sedation plan: IV Moderate Sedation Medication:Versed, Fentanyl 13:28:26 Versed 2 mg I.V. was administered by Mary Harrison RN; for sedation; ::31 Fentanyl 50 mcg I.V. was administered by Mary Harrison RN; for sedation; 13:30:42 Zero performed for pressure channel P1 13:30:45 Procedure started. 13:30:53 Local anesthetic to right radial artery with Lidocaine 2% by Lang Vega MD.INITIAL ACCESS ONLY 13:31:01 A 6 Fr Short sheath was inserted into the Right Radial artery 13:31:27 A DIAGNOSTIC [place] 110cm 5 Fr catheter (367366) was advanced over the wire and used for Procedure. 13:32:59 LV gram done using THOMAS 13:33:01 Injector settings: Ml/sec: 7, Volume: 15, 13:33:40 LV hemodynamics recorded. 13:33:51 Versed 2 mg I.V. was administered by Mary Harrison RN; for sedation; 13:33:57 Fentanyl 50 mcg I.V. was administered by Mary Harrison RN; for sedation; 13:34:11 EF : 60 % 13:36:14 LCA angiography performed. 13:37:39 RCA angiography performed. 13:37:42 Catheter exchanged over wire. 13:38:14 GUIDE 6FR XBLAD 3.5 catheter ([id number]) opened to sterile field. 13:38:15 INFLATOR Merit BasixCompak (KI2020) opened to sterile field. 13:38:16 TUBING High Pressure Extension Tubing (Gary) ([id number]) opened to sterile field. 13:39:15 BMW 300cm Straight [place] 2 wire (7680739) opened to sterile field. 13:40:08 6 Fr XBLAD 3.5 guide catheter was inserted over the wire 13:40:51 Guide Catheter removed. unable to cannulate vessel. 13:41:39 GUIDE 6FR XBC 3 (59758185) opened to sterile field. 13:41:54 Zero performed for pressure channel P1 13:42:00 Zero performed for pressure channel P1 13:42:22 6 Fr XBC guide catheter was inserted over the wire 13:44:08 Guide Catheter removed. unable to cannulate vessel. 13:44:44 GUIDE 6FR Q 3.5 catheter ([id number]) opened to sterile field. 13:44:56 6 Fr Q 3.5 guide catheter was inserted over the wire 13:46:18 Heparin Bolus 7000 units I.V. was administered by Mary Harrison RN; for anticoagulation; verified with Dr. Vega 13:47:08 Plavix 600 mg P.O. was administered by Mary Harrison RN; for antiplatelet therapy; 13:47:19 BMW 300 wire advanced. 13:47:58 Wire advanced across lesion. 13:50:44 Place stent Inflation Number: 1 A INTEGRITY OTW 3.0 X 12 stent ([id number]) was prepped and advanced across the Mid CX . The stent was deployed at 14 XANDER for 0:10 (min:sec) . 13:51:21 Stent catheter was removed intact over wire. 13:52:43 Nitroglycerin IC/IA 100 mcg I.C. was administered by Lang Vega MD; for vasodilation; 13:54:41 Wire removed. 13:54:41 Guide catheter removed. 13:54:45 Procedure ended.(Physican Out) 13:54:57 TR BAND Standard ([id number]) opened to sterile field. 13:55:30 Sheath removed intact; hemostasis achieved with Mechanical Compression to the Right Radial artery. 13:55:39 Fluoroscopy time 07.20 minutes. 13:55:43 Fluoroscopy dose: 819 mGy 13:55:43 Flurop Dose total: 819 13:55:48 Contrast amount:Isovue 300 137ml. 13:55:57 Sharps counted by scrub and verified by R.N. 13:56:00 TR band inflated with 10cc of air. 13:56:03 Post-procedure physical assessment completed. ASA score P 2 - A patient with mild systemic disease as per Lang Vega MD. 13:56:06 Post procedure rhythm: sinus rhythm 13:56:08 Estimated blood loss: 10 ml 13:56:10 Post procedure instruction explained to patient.Patient verbalizes understanding. 13:56:10 Patient needs reinforcement of post procedure teaching. 13:56:52 Procedure type changed to Cath procedure, Diagnostic procedure, LHC, LHC w/Coronaries, Sedation Charges, Moderate Sedation up to 15 minutes, PCI procedure, Coronary Stent, Coronary Stent Initial 13:57:59 Procedure and supply charges have been captured, reviewed, submitted and are correct. 13:58:01 Procedure Complication : No complications 14:02:03 Vital chart was stopped 14:02:04 See physician's report for complete and final results. 14:02:06 Report given to Pre/Post Procedure Room. 14:02:09 Patient transfered to Pre/Post Procedure Room with Bed. 14:02:12 Procedure ended. 14:02:12 Full Disclosure recording stopped 14:02:22 End room use (Document Last) Intervention Summary Intervention Notes Time ActionType Lesion and Equipment Action# Pressure Duration Attributes Used 13:50:44 Place stent Mid CX INTEGRITY 1 14 00:10 OTW 3.0 X 12 stent ([id number]) Device Usage Item Name Manufacture Quantity Catalog Number Hospital Part Current Mini mal Lot# / Charge Number Stock Stock Serial# Code ACIST Acist 1 18320 391317 274727 376466 20 Syringe Medical (90180) Systems Inc Bag Microtek 1 2001S 861130 32674 732671 5 Decanter Medical Inc. (2001S) ACIST Hand Acist 1 48963 419154 809402 398320 5 Control Medical (71518) Systems Inc ACIST Acist 1 03968 884467 596422 005579 5 Manifold Medical (86297) Systems Inc Tegaderm 4 3M 1 1626W 120649 387335 050227 5 x 4 (1626W) Medline Medline 1 [id number] 943677 72363 820047 5 Cath Pack ([id number]) MBrace Advanced 1 140-0250-00 273642 55877 536815 5 Wrist Vascular Support Dynamics (469294129) NEEDLE Cook Cook Medical 1 M94562 333766 909055 899557 5 21G 4cm Radial (V89593) EMERALD Cardinal 1 502-455 715697 999462 872241 5 Guide Wire Health (502-455) SHEATH 6FR Cardinal 1 2499209 457297 1511978 119435 5 [facility] (7411484) DIAGNOSTIC Terumo 1 40-8233 715919 372934 829639 5 [place] 110cm 5 Fr catheter (565732) GUIDE 6FR Cardinal 1 32306995 607831 699521 921206 10 XBLAD 3.5 Health catheter (51010337) INFLATOR Merit 1 AW3539 782071 099720 555832 15 Merit Medical BasixCompak (SU7367) TUBING High Merit 1 [id number] 309211 59251 360975 10 Pressure Medical Extension Tubing (Vega) ([id number]) BMW 300cm Jackson 1 1459053 102093 383330 685388 5 Straight Vascular [place] 2 wire (2219786) GUIDE 6FR Cardinal 1 23625802 137245 80481 597720 5 XBC 3 Health (55586493) GUIDE 6FR Q [place] 1 [id number] 277351 236426 6645496 1 3.5 Scientific catheter (923984730) INTEGRITY Medtronic 1 [id number] 528617 556938 002399 5 [id number] OTW 3.0 X 12 stent ([id number]) TR BAND Terumo 1 [id number] 326080 721399 761804 40 Standard ([id number]) Signature Audit [place] Stage Time Signature Unsigned Intra-Procedure 04/06/2019 Melissa Resendez 2:05:04 PM RT(R) Signatures Monitor : Melissa Resendez Signature : RT Date : Time : [address] [address]
[2019-04-06 11:30] VITALS: BP 129/69; Ht 165.1 cm; Wt 70.9 kg
[2019-04-06 11:40] LABS: BASOPHILS 0.7 % (0-2); EOSINOPHILS 3.4 % (0-7); HEMATOCRIT 38.9 % (42.0-54.0); HEMOGLOBIN 13.3 g/dL (13.5-17.5); IMMATURE GRANULOCYTES 0.2 % (0-5); LYMPHOCYTES 39.8 % (15-50); MCH 30.2 pg (26.0-34.0); MCHC 34.2 g/dL (31.0-37.0); MCV 88.2 fL (80.0-100.0); MEAN PLATELET VOLUME 8.7 fL (7.4-10.4); MONOCYTES 11.8 % (2-11); NEUTROPHILS 44.1 % (40-80); PLATELET COUNT 223 10x3/uL (130-400); RBC 4.41 10x6/uL (4.20-6.10); RDW 13.3 % (11.5-14.5); WBC 4.2 10x3/uL (4.8-10.8)
[2019-04-06 11:49] LABS: ANION GAP 10.4 mmol/L (8-16); CALCIUM 9.4 mg/dL (8.5-10.1); CARBON DIOXIDE 29.2 mmol/L (21.0-32.0); CREATININE - SERUM 1.1 mg/dL (0.6-1.3); POTASSIUM - SERUM 4.6 mmol/L (3.5-5.1)
[2019-04-06] MEDS ORDERED: PEPCID AC20 MG PO (13:33)
[2019-04-06] MEDS ORDERED: SINGULAIR10 MG PO (13:33)
[2019-04-06] MEDS ORDERED: ZANTAC300 MG PO (13:34)
[2019-04-06] MEDS ORDERED: PLAVIX75 MG PO (14:08)
--- NOTE | 2019-04-06 14:30 | NUR ---
2L NC, NO RESP DISTRESS. RIGHT WRIST TR BAND CDI, NO BLEEDING OR HEMATOMA NOTED. NO C/O PAIN OR NAUSEA. VSS. FAMILY AT BEDSIDE, CALL LIGHT WITHIN REACH.
--- NOTE | 2019-04-06 14:33 | NUR ---
PLAVIX PRESCRIPTION CALLED IN TO [facility] PER PT REQUEST. SPOKE WITH ZAID AT THIS PHARMACY.
--- NOTE | 2019-04-06 15:00 | NUR ---
VOIDED 650CC INTO URINAL. RIGHT WRIST TR BAND CDI, NO BLEEDING NOTED. 2L NC WITH NO RESP DISTRESS. VSS. WILL CONTINUE TO MONITOR.
--- NOTE | 2019-04-06 15:15 | NUR ---
RESTING QUIETLY WITH EYES CLOSED. RIGHT WRIST TR BAND CDI, NO BLEEDING/HEMATOMA NOTED. DENIES ANY NEEDS. VSS. CALL LIGHT WITHIN REACH.
--- NOTE | 2019-04-06 15:45 | NUR ---
CONTINUES TO REST COMFORTABLY WITH NO C/O. RIGHT WRIST TR BAND CDI, NO BLEEDING OR HEMATOMA NOTED. DENIES ANY NEEDS AT THIS TIME. VSS. WILL CONTINUE TO MONITOR.
--- NOTE | 2019-04-06 16:30 | NUR ---
RIGHT RADIAL TR BAND IN PLACE. NO BLEEDING/HEMATOMA NOTED. VSS. PT VOIDED IN URINAL WITHOUT DIFFICUTLY.
--- NOTE | 2019-04-06 16:57 | NUR ---
3cc OF AIR REMOVED FROM TR BAND. NO BLEEDING/HEMATOMA NOTED AT THIS TIME. VSS. WILL CONTINUE TO MONITOR.
--- NOTE | 2019-04-06 17:15 | NUR ---
3cc OF AIR REMOVED FROM TR BAND. PT TOLERATED WELL. NO S/S OF BLEEDING/HEMATOMA NOTED. VSS.
--- NOTE | 2019-04-06 17:30 | NUR ---
3cc OF AIR REMOVED FROM TR BAND. TOLERATED WELL. NO BLEEDING/HEMATOMA NOTED. LEFT ARM PIV D/C'D WITH CATH TIP INTACT. PT INSTRUCTED TO GET UP AND DRESSED. NO ASSISTANCE NEEDED. CALL LIGHT WITHIN REACH.
--- NOTE | 2019-04-06 17:44 | NUR ---
TR BAND REMOVED. DRESSING APPLIED. NO BLEEDING/HEMATOMA NOTED. DISCUSSED DISCHARGE INSTRUCTIONS WITH PT AND PT'S FAMILY. THEY VOICED UNDERSTANDING.
--- NOTE | 2019-04-06 18:00 | NUR ---
PT TAKEN OUT TO VEHICLE. NO S/S OF DISTRESS NOTED. ALL BELONGINGS AND PAPERWORK IN HAND. RIGHT WRIST DRESSING C/D/I. NO S/S OF HEMATOMA NOTED. PT INSTRUCTED TO KEEP RIGHT WRIST BRACE ON FOR 2 HOURS AFTER ARRIVAL HOME.
== END 2019-04-06 18:00 | disposition home or self-care (01) ==
LOC: D.CATH 11:08
PROVIDERS: ATTEND Internal Medicine Cardiovascular Disease
DX: I25.119 Atherosclerotic heart disease of native coronary artery with unspecified angina pectoris (principal); Z01.812 Encounter for preprocedural laboratory examination

== ENCOUNTER → 2019-08-04 07:34 | Outpatient (CLI) | payer MEDICARE ==
[2019-04-06 11:30] VITALS: BMI 26.0
[~2019-08-04 07:34] MED LIST changes: +PEPCID AC20 MG PO; +ZANTAC300 MG PO
== END | disposition home or self-care (01) ==
LOC: D.US 07:34
PROVIDERS: ATTEND Surgery
DX: R10.9 Unspecified abdominal pain (principal); R11.0 Nausea

== ENCOUNTER → 2019-08-17 12:35 | Outpatient (CLI) | payer MEDICARE ==
[2019-04-06 11:30] VITALS: BMI 26.0
== END | disposition home or self-care (01) ==
LOC: D.HCCECHO 12:35
PROVIDERS: ATTEND Internal Medicine Cardiovascular Disease
DX: I25.10 Atherosclerotic heart disease of native coronary artery without angina pectoris (principal)

== ENCOUNTER → 2019-08-19 08:25 | Outpatient (CLI) | payer MEDICARE ==
[2019-04-06 11:30] VITALS: BMI 26.0
== END | disposition home or self-care (01) ==
LOC: D.NM 08:25
PROVIDERS: ATTEND Surgery
DX: R10.9 Unspecified abdominal pain (principal); R11.0 Nausea

== ENCOUNTER 2019-09-27 11:10 | Day surgery (SDC) | payer MEDICARE ==
[2019-09-26 14:14] LABS: BASOPHILS 0.4 % (0-2); EOSINOPHILS 3.6 % (0-7); HEMATOCRIT 42.1 % (42.0-54.0); IMMATURE GRANULOCYTES 0.4 % (0-5); MCH 29.7 pg (26.0-34.0); MCHC 33.3 g/dL (31.0-37.0); MCV 89.4 fL (80.0-100.0); MEAN PLATELET VOLUME 8.4 fL (7.4-10.4); MONOCYTES 11.7 % (2-11); NEUTROPHILS 59.9 % (40-80); RBC 4.71 10x6/uL (4.20-6.10); RDW 15.2 % (11.5-14.5); WBC 5.6 10x3/uL (4.8-10.8)
[2019-09-26 14:16] LABS: ANION GAP 13.2 mmol/L (8-16); CALCIUM 9.2 mg/dL (8.5-10.1); CARBON DIOXIDE 26.7 mmol/L (21.0-32.0); CREATININE - SERUM 1.1 mg/dL (0.6-1.3); POTASSIUM - SERUM 4.9 mmol/L (3.5-5.1)
[2019-09-26 14:24] LABS: PLATELET COUNT 283 10x3/uL (130-400)
[~2019-09-27] VITALS: Ht 182.9 cm; Wt 68.5 kg
[~2019-09-27 11:10] MED LIST changes: +ALBUTEROL SULF8.5 GM INH
[2019-09-27 12:00] VITALS: BP 121/60; Ht 182.9 cm; Wt 68.5 kg
[2019-09-27] MEDS ORDERED: HYDROCODON-ACE1 EA10 PO (15:56)
--- NOTE | 2019-09-27 16:20 | NUR ---
PACU NURSE STATED PT DIDN'T RECEIVE ANY PAIN MEDS AT RECOVERY BUT IS NOW HAVING SOME DISCOMFORT. PT STATES PAIN MILD PS-5 ONE TIME ORDER NORC 10/325MG PO GIVEN WITH FULL LIQUID TRAY.
--- NOTE | 2019-09-27 18:57 | NUR ---
1800 IV REMOVED AND INSTRUCTIONS GIVEN TO PT
--- NOTE | 2019-09-29 11:58 | OP ---
PATIENT NAME: ALICE DAMON MEDICAL RECORD: [id number] :41 LOCATION:D.OPS ADMISSION DATE: SURGEON: JOHNNIE SANCHEZ MD DATE OF OPERATION: 09/27/2019 PREOPERATIVE DIAGNOSES: 1. Biliary dyskinesia. 2. Benign prostatic hypertrophy. 3. Neuropathy. POSTOPERATIVE DIAGNOSES: 1. Biliary dyskinesia. 2. Benign prostatic hyperplasia. 3. Neuropathy. PROCEDURE: Laparoscopic cholecystectomy. SURGEON: Johnnie Sanchez MD REPORT OF PROCEDURE: The patient's abdomen was prepped and draped in sterile fashion. A cutdown made on the superior aspect of the umbilicus, 0 Vicryls were placed in the fascia bilaterally and the fascia was incised with 15-blade. I then bluntly entered the peritoneal cavity and placed a 12-mm Akty port. Under direct visualization, a 5 mm trocar was placed in the epigastrium and 2 more 5-mm trocars were placed in the right subcostal region. The gallbladder was grasped and elevated. The cystic duct was dissected free. I never saw a true cystic artery dissected through the subcutaneous tissues all the way up to the base of the gallbladder and actually elevated the gallbladder off the liver bed a little ways and never ran into a tubular structure consistent with an artery. I clipped the cystic duct proximally and distally and ligated this in standard fashion. The gallbladder was then taken off the liver bed using electrocautery and placed in the right upper quadrant. Any bleeding from the liver bed was then treated with electrocautery. There were a few puncture injury to the liver during this portion of the procedures. The liver was quite friable, did not appear to be acutely inflamed. Any injury to the liver was treated with electrocautery. At the conclusion of the case, I saw no evidence of any active bleeding. At this point, the ports and insufflation were then removed and the gallbladder was taken out through the umbilicus. The umbilical fascia was closed with interrupted 0 Vicryls times 3. The wounds were then irrigated out with normal saline and infused with 10 mL of 0.25% Marcaine with epinephrine. The skin incisions were all closed with subcutaneous 5-0 Monocryl and dressed appropriately. COMPLICATIONS: None. CONDITION: Stable. ANESTHESIA: General endotracheal and local. BLOOD LOSS: Minimal. 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
== END 2019-09-27 18:10 | disposition home or self-care (01) ==
LOC: D.OPS 11:10
PROVIDERS: ATTEND Surgery
DX: K82.8 Other specified diseases of gallbladder (principal); N40.0 Benign prostatic hyperplasia without lower urinary tract symptoms; G62.9 Polyneuropathy, unspecified; E78.5 Hyperlipidemia, unspecified; I10 Essential (primary) hypertension; I25.10 Atherosclerotic heart disease of native coronary artery without angina pectoris; K21.9 Gastro-esophageal reflux disease without esophagitis; J44.9 Chronic obstructive pulmonary disease, unspecified

== ENCOUNTER → 2020-02-24 09:48 | Outpatient (CLI) | payer MEDICARE ==
[2019-09-27 12:00] VITALS: BMI 20.5
[~2020-02-24 09:48] MED LIST changes: +HYDROCODON-ACE1 EA10 PO
== END | disposition home or self-care (01) ==
LOC: D.CT 09:48
PROVIDERS: ATTEND Surgery
DX: R10.13 Epigastric pain (principal)

== ENCOUNTER → 2020-02-29 11:19 | Outpatient (CLI) | payer MEDICARE ==
[2019-09-27 12:00] VITALS: BMI 20.5
== END | disposition home or self-care (01) ==
LOC: D.RAD 11:19
PROVIDERS: ATTEND Allergy & Immunology
DX: J32.0 Chronic maxillary sinusitis (principal)